=== PATIENT | female | born 1990 | race Caucasian/White ===

== ENCOUNTER 2023-05-09 12:36 | Emergency (ER) | payer OTHER ==
[2023-05-09 12:59] VITALS: BP 130/77; O2SAT 100
--- NOTE | 2023-05-09 13:00 | ED Physician Documentation ---
History of Present Illness - Stated complaint Stated Complaint: BEE STING - Chief complaint Chief Complaint: Wound - History obtained from History obtained from: Patient - History of Present Illness Timing: How many days ago (2) Pain level max: 3 Pain level now: 3 - Additonal information Additional information: 32-year-old female presents to the emergency department stating that she suffered a bee sting to the left forearm 2 days ago, has had continued swelling and pain, started to notice increasing redness today. Took Benadryl without relief. He is not on any medications at home. Denies any possibility of . No difficulty breathing or speaking. PD PAST MEDICAL HISTORY - Past Medical History Past Medical History: No - Present Medications Home Medications: Ambulatory Orders Medication Instructions Recorded Confirmed cephALEXin [Keflex] 500 mg PO Q6H #28 cap 05/09/23 predniSONE [Deltasone] 40 mg PO DAILY #10 tablet 05/09/23 - Allergies Allergies/Adverse Reactions: Allergies Allergy/AdvReac Type Severity Reaction Status Date / Time No Known Drug Allergies Allergy Verified 05/09/23 12:42 - Living Situation Living Arrangement: reports: At home - Social History Does the pt have substance abuse?: No - Family History Family history: reports: Non contributory PD ED PE NORMAL - Vitals Vital signs reviewed: Yes - General General: Alert and oriented X 3, No acute distress - HEENT HEENT: Moist mucous membranes - Respiratory Respiratory: No respiratory distress, Clear bilaterally - Derm Derm: Warm and dry - Extremities Extremities: Other (L arm - Swelling, erythema and warmth to the volar aspect of the left forearm near the bee sting. Encompasses most of the forearm. Neurovascular intact. No crepitus.) - Neuro Neuro: Alert and oriented X 3 Results - Vitals Vitals: Vital Signs - 24 hr 05/09/23 12:42 Temperature 36.5 C Heart Rate 70 Respiratory 16 Rate Blood Pressure 130/77 O2 Saturation 100 Oxygen O2 Source Room air PD Medical Decision Making - ED course Complexity details: considered differential, d/w patient ED course: Patient with what appears to be an allergic reaction to the bee sting, but possible secondary cellulitis. Will place on prednisone and Keflex. Have her follow-up with her PCP closely for further care and repeat evaluation. No evidence of anaphylaxis. No evidence of abscess. Patient counseled regarding signs and symptoms for which I believe and urgent re-evaluation would be necessary. Patient with good understanding of and agreement to plan and is comfortable going home at this time This document was made in part using voice recognition software. While efforts are made to proofread this document, sound alike and grammatical errors may occur. Departure - Departure Disposition: 01 Home, Self Care Clinical Impression: Bee sting Qualifiers: Encounter type: initial encounter Injury intent: undetermined intent Qualified Code(s): T63.444A - Toxic effect of venom of bees, undetermined, initial encounter Cellulitis Qualifiers: Site of cellulitis: extremity Site of cellulitis of extremity: upper extremity Laterality: left Qualified Code(s): L03.114 - Cellulitis of left upper limb Condition: Good Instructions: ED Infec Skin Cellulitis, ED Bite Sting Insect Local Allergic React Follow-Up: your,doctor in 3 days for wound check [Other] Prescriptions: predniSONE [Deltasone] 40 mg PO DAILY #10 tablet cephALEXin [Keflex] 500 mg PO Q6H #28 cap Comments: Your prescriptions were sent to [facility] in [place]. Please take all steroids and antibiotics until gone. That should start to improve within the next 12 to 24 hours. Please return if you worsen or fail to improve as expected.
[2023-05-09] MEDS: cephALEXin 250 MG CAPSULE PO STA (13:02)
[2023-05-09] MEDS: predniSONE 20 MG TABLET PO STA (13:02)
== END 2023-05-09 13:07 | disposition home or self-care (01) ==
LOC: ED 12:36
DX: T63.441A Toxic effect of venom of bees, accidental (unintentional), initial encounter (principal); L03.114 Cellulitis of left upper limb
CPT/HCPCS: 99282; 99283